=== PATIENT | female | born 1970 | race African-American/Black ===

== ENCOUNTER → 2021-06-30 07:34 | Outpatient (CLI) | payer BC, SELFPAY ==
--- NOTE | ~2021-06-30 | US_ITS ---
EXAMINATION: US pelvic complete DATE: 06/30/2021 07:53 INDICATION: Excessive and frequent menstruation with regular cycles. Comparison:No prior studies for comparison. TECHNIQUE: Multiple transabdominal sonographic images of the pelvis performed. FINDINGS: The uterus measures 8.5 x 5.4 x 6.6 cm. There are uterine fibroids, largest measuring 3.1 c m. The endometrial complex measures 1.3 cm. The right ovary measures 3.4 x 2 x 2.5 cm and the left ovary is surgically absent. There is 2.5 cm ri ght ovarian cyst. There is no free fluid in the pelvis. There are no abnormal masses seen on either side. IMPRESSION: 1. Uterine fibroids, largest measuring up to 3.1 cm. 2: Endometrial thickening measuring 1.3 cm. 3: Right ovarian cyst measuring 2.5 cm maximum dimension. Reviewed, dictated and finalized at location A.
== END ==
PROVIDERS: Visit Provider Nurse Practitioner
DX: N92.0 Excessive and frequent menstruation with regular cycle (principal); D25.9 Leiomyoma of uterus, unspecified; R93.89 Abnormal findings on diagnostic imaging of other specified body structures; N83.201 Unspecified ovarian cyst, right side
CPT/HCPCS: 76856

== ENCOUNTER 2021-10-26 21:28 | Inpatient (IN) | payer OTHER, MEDICAID, SELFPAY ==
[2021-10-26] VITALS (22 sets, daily range): BP systolic 105–138; BP diastolic 60–78; PULSE 67–83; RESP 18–35; TEMP 37.2–37.7; O2SAT 88–97
--- NOTE | ~2021-10-26 | XR_ITS ---
EXAMINATION: XR chest 1V portable EXAM DATE: 10/26/2021 23:20 INDICATION: cough, sob,COVID + . TECHNIQUE: Portable AP frontal chest x-ray was obtained. There is no prior study for comparison. FINDINGS: Moderate amount of bilateral ill-defined airspace disease, distribution and appearance is c onsistent with COVID pneumonia. There is cardiomegaly. There is no pneumothorax suspected. There are no pleural effusions. IMPRESSION: Moderate amount of COVID pneumonia. Reviewed, dictated and finalized at location G. MAKER
--- NOTE | ~2021-10-26 | CT_ITS ---
EXAMINATION: CTA chest PE protocol EXAM DATE: 10/26/2021 23:58 INDICATION: Shortness of breath, elevated D-dimer . TECHNIQUE: Spiral CTA of the chest (pulmonary arteries) was performed with 100 cc Omnipaque 350 intr avenous contrast injection. Images were acquired during the pulmonary arterial phase. Coronal maxi mum intensity projection 3D-reconstructions were created by the technologist on dedicated workstation . Axial, coronal and sagittal reformatted images were reviewed. The dose-length product (DLP) for t his examination was 711.10 mGy-cm. The exposure was tailored according to patient size (auto mA exp osure control), and iterative reconstruction (ASIR) was used as additional dose reduction technique. There is no prior study for comparison. FINDINGS: Pulmonary arteries are well opacified and without intraluminal filling defects. No thora cic aortic dissection. There is moderate amount of bilateral airspace disease, appearance is consist ent with COVID pneumonia. There is 5 mm right middle lobe round nodule probably granuloma. There are no pleural or pericardial effusions. Tracheobronchial tree is patent. There is no mediastinal, hi lar or axillary lymphadenopathy. There is no pneumothorax. Mild cardiomegaly. No evidence of cor onary arterial calcification. Upper abdomen is unremarkable. There is small sliding gastroesophagea l hiatal hernia. There is thoracic spondylosis without osteoblastic or osteolytic lesions identified . IMPRESSION: 1. Moderate amount of COVID pneumonia. 2. Mild cardiomegaly. 3. No pulmonary emboli. Reviewed, dictated and finalized at location G. [employer]
--- NOTE | 2021-10-26 21:59 | ECG_ITS ---
Measurements Intervals [place] Rate: 84 P: MD: 0 QRS: -30 QRSD: 106 T: -2 QT: 410 QTc: 485 Interpretive Statements ACCELERATED JUNCTIONAL RHYTHM DELAYED PRECORDIAL R/S TRANSITION BORDERLINE T WAVE ABNORMALITY- LATERAL LEADS BASELINE ARTIFACT- II, III, AVR, AVF, V1-V6 ABNORMAL ECG Electronically Signed On 10-27-2021 6:31:10 [employer] by Delio Diaz D.O.
--- NOTE | 2021-10-26 22:15 | ED.SOB ---
HPI - SOB/Dyspnea General Chief Complaint: Shortness of Breath/Dyspnea Stated Complaint: Covid +, low O2 sats Time Seen by Provider: 10/26/21 21:59 Source: patient Mode of arrival: ambulatory Limitations: no limitations History of Present Illness HPI Narrative: Patient is a 52-year-old female complaining of shortness of breath and low oxygen saturation I checked it and it was 88 accompanied by nausea, vomiting, fever, and body aches. Patient states that she tested positive for Covid 2 days ago. Patient denies any chest pain, abdominal pain, diarrhea or rash. Related Data Home Medications Medication Instructions Recorded Confirmed coenzyme Q10 10 mg capsule 10 mg PO ONCE 09/15/19 09/06/21 garlic 300 mg capsule 300 mg PO DAILY 09/15/19 09/06/21 multivitamin 1 cap PO DAILY 09/15/19 09/06/21 naproxen sodium 220 mg capsule 220 mg PO ONCE PRN cap 09/15/19 09/06/21 omega-3 fatty acids 1,000 mg 1,000 mg PO DAILY 09/15/19 09/06/21 capsule Allergies Allergy/AdvReac Type Severity Reaction Status Date / Time tetanus toxoid, adsorbed Allergy Unknown Swelling Verified 02/08/20 14:46 Review of Systems Review of Systems: All systems reviewed & are unremarkable except as noted in HPI and below Constitutional: Constitutional: Denies excessive sweating, Denies fatigue, Denies headache(s), Denies lethargy, Denies weakness and Denies weight loss Eyes: Eyes: Denies blurry vision, Denies change in vision and Denies loss of vision ENT: Denies dizziness, Denies ear discharge, Denies headache(s), Denies lip swelling, Denies epistaxis, Denies nasal congestion, Denies neck pain, Denies throat swelling and Denies tongue swelling Cardiovascular: Cardiovascular: Denies chest pain, Denies chest pain at rest, Denies chest pain with activity, Denies diaphoresis, Denies rapid heart rate, Denies edema, Denies irregular heart rhythm, Denies lightheadedness and Denies palpitations Respiratory: Respiratory: Denies chest congestion and Denies hemoptysis Gastrointestinal: Gastrointestinal: Denies abdominal pain, Denies melena, Denies hematochezia, Denies diarrhea, Denies nausea, Denies vomiting and Denies hematemesis Musculoskeletal: Musculoskeletal: Denies abnormal gait, Denies deformity, Denies joint swelling, Denies limited range of motion, Denies neck pain and Denies numbness Neurologic: Denies Abnormal speech present, Denies abnormal gait, Denies confusion, Denies dizziness, Denies headache(s), Denies focal weakness, Denies loss of vision, Denies numbness, Denies Other visual disturbances, Denies Sensory deficit (Neuro) and Denies weakness Psychiatric: Psychiatric: Denies confusion, Denies depression, Denies auditory hallucinations, Denies homicidal ideation and Denies suicidal ideation Endocrine: Endocrine: Denies cold intolerance, Denies excessive sweating, Denies fatigue, Denies heat intolerance and Denies palpitations Hematologic/Lymphatic: Hematologic/Lymphatic: Denies easy bleeding and Denies easy bruising Allergic/Immunologic: Allergic/Immunologic: Denies lip swelling, Denies throat swelling and Denies tongue swelling PMFSH Past Medical History Medical History Anemia Anemia Cholecystectomy planned Cholecystectomy planned Cyst near tailbone Cyst of jaw Heart murmur Heart murmur Hypertension Hypertension Seizure disorder Seizure disorder Surgical History Surgical History H/O removal of cyst Pilondial cyst removed 1984 Family History Family History Father Hypertension Type 2 diabetes mellitus Hyperlipidemia Mother Hypertension Sibling Type 2 diabetes mellitus Hypertension Hyperlipidemia Father Hypertension Diabetes mellitus Hyperlipidemia Mother Hypertension Sibling Hypertension Diabetes mellitus Hyperlipidemia Father Hypertension Mother
[2021-10-26 22:25] LABS: Basophils Percent Auto 0.2 % (0.2-1.2); Hematocrit 35.9 % (37.0-47.0); Hemoglobin 12.2 g/dL (12.0-15.0); Immature Granulocyte Absolute 0.02 K/mm3 (0.00-0.031); Immature Granulocyte Percent A 0.4 % (0-0.5); Lymphocytes Absolute Auto 1.13 K/mm3 (0.9-3.2); Lymphocytes Percent Auto 22.9 % (18.3-44.2); Mean Corpuscular Volume 88.2 fl (80-100); Mean Platelet Volume 10.5 fl (7.4-10.4); Monocytes Absolute Auto 0.2 K/mm3 (0.1-0.6); Monocytes Percent Auto 3.2 % (2.6-8.5); Neutrophils Absolute Auto 3.6 K/mm3 (1.3-6.7); Neutrophils Percent Auto 73.3 % (45.5-73.1); Platelet Count Result 233 k/mm3 (150-375); Red Blood Count 4.07 M/mm3 (4.2-5.4); White Blood Count 4.9 K/mm3 (4.5-10.0)
[2021-10-26 22:36] LABS: Partial Thromboplastin Time 29.6 SECONDS (22.3-36.8); Prothrombin Time 12.8 Seconds (11.1-14.7)
[2021-10-26 22:39] LABS: D Dimer 0.61 ug/mL (<0.48)
[2021-10-26 22:59] LABS: Alanine Aminotransferase 67 U/L (4-35); Albumin Level 4.1 g/dL (3.5-5.1); Alkaline Phosphatase 87 U/L (38-126); Anion Gap 8 mmol/L (8-16); Aspartate Amino Transferase 86 U/L (14-36); Bilirubin,Total 0.5 mg/dL (0.2-1.3); Blood Urea Nitrogen 6 mg/dL (7-17); Calcium 8.7 mg/dL (8.4-10.2); Carbon Dioxide 24 mmol/L (22-30); Chloride 103 mmol/L (98-107); Estimated CRCL calculation 124 ml/min; Estimated Glomerular Filt Rate > 60; Glucose 182 mg/dL (65-110); Potassium 3.7 mmol/L (3.4-5.0); Sodium 135 mmol/L (137-145)
[2021-10-26 23:11] LABS: NT Pro B Type Natriuretic Pept 26 pg/mL (5-100); Troponin I < 0.012 ng/mL (0.000-0.034)
[2021-10-26] MEDS: PROMETHAZINE HCL 25 MG/ML AMPUL 12.5 MG IV PUSH (23:19)
[2021-10-26] MEDS: SODIUM CHLORIDE 0.9% IV 100 ML 500 ML (23:19)
[2021-10-26] MEDS: LACTATED RINGERS 1,000 ML 999 ML (23:19)
[2021-10-26 23:29] LABS: Alveolar/Arterial O2 Gradient 92.9 mmHg; Base Excess ABG 2.4 mEq/l (+/-2.0); Fractional Inspired Oxygen 21 %; HCO3 ABG 25.2 mEq/l (22.0-26.0); Oxygen Content ABG 4.8 %vol (16.0-22.0); PCO2 ABG 33.1 mmHg (35.0-45.0); PO2 FiO2 Ratio Arterial Blood 0.82 %; Total Hemoglobin 12.2 g/dL (12.0-18.0); pH ABG 7.499 (7.350-7.450)
[2021-10-27] VITALS (20 sets, daily range): BP systolic 105–138; BP diastolic 54–72; PULSE 68–84; RESP 14–31; TEMP 36.5–37; O2SAT 92–100; BMI 38.2
--- NOTE | 2021-10-27 00:42 | PM.IMHP ---
H&P: HPI History of Present Illness Date/Time: 10/27/21 00:42 Chief Complaint: Shortness of breath Narrative: This is a 51-year-old female with past medical history significant for hypertension, patient presented today to the emergency room due to worsening shortness of breath pulse ox at home showed saturation in the 80s, patient tested positive for COVID with a home kit test 2 days ago, has been having fevers, chills, poor appetite, no nausea or vomiting, or abdominal pain, or diarrhea, has had fevers ,rigors chills ,dry cough. Preliminary workup was significant for chest x-ray with bilateral diffuse infiltrates. Patient is vaccinated with [employer] COVID-19 vaccine. Review of Systems Review of Systems: Low pulse ox at home, shortness of breath, generalized malaise. Constitutional: Constitutional: Reports chills, Reports fever(s), Reports lethargy, Reports malaise, Reports night sweats and Reports poor appetite Eyes: Eyes: Denies change in vision ENT: Denies nasal congestion, Denies nasal discharge, Denies nasal obstruction and Denies odynophagia Cardiovascular: Cardiovascular: Denies claudication, Denies lightheadedness, Denies radiating jaw, neck or arm pain, Denies palpitations, Denies dyspnea on exertion and Denies orthopnea Respiratory: Respiratory: Denies change in phlegm color, Denies chest congestion, Denies excessive phlegm production and Reports dyspnea Gastrointestinal: Gastrointestinal: Denies abdominal pain, Denies diarrhea, Denies nausea and Denies vomiting Genitourinary: Genitourinary: Denies dysuria Musculoskeletal: Musculoskeletal: Reports myalgias, Denies arthralgias and Denies joint swelling Integumentary/Breasts: Skin/Breast: Denies rash Neurologic: Denies focal weakness and Denies Sensory deficit (Neuro) Psychiatric: Psychiatric: Reports no additional psychiatric complaints and Reports as per HPI Endocrine: Endocrine: Denies cold intolerance, Denies fatigue, Denies heat intolerance, Denies polydipsia, Denies polyuria and Denies palpitations Hematologic/Lymphatic: Hematologic/Lymphatic: Reports no additional hematologic/lymphatic complaints and Reports as per HPI Allergic/Immunologic: Allergic/Immunologic: Reports no additional allergic/immunologic complaints and Reports as per HPI [facility] Past Medical History Medical History Anemia Anemia Cholecystectomy planned Cholecystectomy planned Cyst near tailbone Cyst of jaw Heart murmur Heart murmur Hypertension Hypertension Seizure disorder Seizure disorder Surgical History Surgical History H/O removal of cyst Pilondial cyst removed 1984 Family History Family History Father Hypertension Type 2 diabetes mellitus Hyperlipidemia Mother Hypertension Sibling Type 2 diabetes mellitus Hypertension Hyperlipidemia Father Hypertension Diabetes mellitus Hyperlipidemia Mother Hypertension Sibling Hypertension Diabetes mellitus Hyperlipidemia Father Hypertension Mother Hypertension Sibling Hypertension Social History Social History Smoking status: Never smoker Alcohol intake: never Substance use: never Spiritual care concerns: No Meds Home Medications and Allergies Home Medications Medication Instructions Recorded Confirmed Type coenzyme Q10 10 mg capsule 10 mg PO ONCE 09/15/19 09/06/21 History garlic 300 mg capsule 300 mg PO DAILY 09/15/19 09/06/21 History multivitamin 1 cap PO DAILY 09/15/19 09/06/21 History omega-3 fatty acids 1,000 mg 1,000 mg PO DAILY 09/15/19 09/06/21 History capsule amlodipine 5 mg tablet 5 mg PO DAILY #90 tablet 09/06/21 09/06/21 Rx losartan 100 mg tablet 100 mg PO DAILY #90 tablet 09/06/21 09/06/21 Rx Allergies Allergy/AdvReac Type Severity Re
[2021-10-27] MEDS: ALBUTEROL SULFATE NEB 2.5 MG/0.5 ML INH 5 MG INHALATION (01:19)
[2021-10-27] MEDS: IPRATROPIUM BR 0.02% INH SOLN 0.5 MG/2.5 ML VIAL INHALATION (01:19)
[2021-10-27] MEDS: ONDANSETRON INJ 4 MG/2 ML VIAL IV PUSH (01:28)
[2021-10-27] MEDS: REMDESIVIR 200 MG/NS 250 ML 200 MG/250 ML BAG 250 MG IVPB (01:29)
--- NOTE | 2021-10-27 03:06 | ADMGEN ---
This patient, Viviana Frey, was admitted to [facility] Surg Room 310-01. Patient/family oriented to hospital policies and general routines including ID bracelet, bed and alarms, visiting hours, pain management, procedures, bathroom and other care routines, personal items, smoking policy, room service/diet, and visiting hours. Information on how to activate the Rapid Response Team has been discussed. Patient/Family are encouraged to report perceived risks to care and to ask questions if they do not understand what they are told or what they should do.
[2021-10-27] MEDS: cefTRIAXone 2 GM in SODIUM CHLORIDE 0.9% IV 100 ML 200 ML IVPB (04:02)
[2021-10-27 04:17] LABS: Prothrombin Time 13.2 Seconds (11.1-14.7)
[2021-10-27 04:20] LABS: Alanine Aminotransferase 76 U/L (4-35); Estimated CRCL calculation 122 ml/min; Estimated Glomerular Filt Rate > 60
[2021-10-27] MEDS: OMEGA 3 POLYUNSAT FATTY ACIDS 1 GM CAP PO (09:52)
[2021-10-27] MEDS: LOSARTAN POTASSIUM 100 MG TABLET PO (09:53)
[2021-10-27] MEDS: ENOXAPARIN 40 MG/0.4 ML SYRINGE SUB-Q (09:53)
[2021-10-27] MEDS: guaiFENesin 12 HR 600 MG TABCR PO ×2 (09:53→20:14)
[2021-10-27] MEDS: amLODIPine BESYLATE 5 MG TABLET PO (09:53)
[2021-10-27] MEDS: MULTIVITAMINS THERAPEUTIC TAB (*BKC) 1 TABLET PO (09:53)
[2021-10-27 15:31] LABS: SARS-CoV-2 RNA PCR Positive
--- NOTE | 2021-10-27 16:43 | PM.IMPN ---
Progress Note: A&P Assessment and Plan (1) Acute respiratory failure with hypoxia: Code(s): J96.01 - Acute respiratory failure with hypoxia Status: Acute Assessment and Plan: Secondary to COVID-19 pneumonia. Noted to be hypoxic at 80% on presentation. Continue supplemental O2 as needed with goal saturations 92% or above. Currently requiring 4 L per nasal cannula. Wean to goal CTA negative for PE (2) Pneumonia due to COVID-19 virus: Code(s): U07.1 - COVID-19; J12.82 - Pneumonia due to coronavirus disease 2019 Status: Acute Assessment and Plan: Tested positive on at home COVID test with symptom onset 5 days ago. Positive PCR test on 10/27/2021. CXR showed moderate amount of COVID pneumonia. Continue isolation precautions Continue dexamethasone and remdesivir #2. Monitor LFTs Supportive care to include bronchodilators, expectorants, antipyretics, incentive spirometry, cornet Discontinue ceftriaxone and azithromycin as no signs/symptoms to suggest secondary bacterial infection Trend inflammatory markers Patient completed [employer] vaccine. Has not received booster yet. (3) Hypertension: Qualifiers: Hypertension type: essential hypertension Qualified Code(s): I10 - Essential (primary) hypertension Code(s): I10 - Essential (primary) hypertension Status: Acute Assessment and Plan: Blood pressure has been well controlled. Last BP 121/68 Continue losartan and amlodipine Monitor blood pressure trends Subjective Date/time seen: 10/27/21 16:43 Interval history: Date of service: 10/27/2021 Viviana Frey is a 51-year-old female with a history anemia, hypertension, seizure disorder, and uterine fibroids is seen in follow-up for COVID-19 pneumonia. She feels better today than she has in the past week. Starting to have some improvement in her breathing. She does complain of dyspnea on exertion as well as conversational dyspnea. She has been able to get up to the commode but feels fatigued with activity. She has been feeling nauseous and was vomiting yesterday. Today, no longer having nausea or vomiting and she is tolerating a liquid diet. She would like to try to advance her diet. No diarrhea. She denies headaches, body aches, dizziness, lightheadedness. Review of Systems Review of Systems: All systems reviewed & are unremarkable except as noted in HPI and below Exam Narrative: Ms. Frey is a well-nourished, well-appearing 51-year-old female who is sitting up in bed. She appears comfortable and is in NARD. Neuro: awake, alert and oriented x4, speech clear, no focal neuro deficits noted HEENMT: normocephalic, atraumatic, EOMI, sclerae anicteric Neck: supple, no lymphadenopathy Respiratory: clear to auscultation bilaterally without crackles, rhonchi, or wheezes, nonlabored breathing Cardio: regular rate, regular rhythm with S1-S2 Abdomen: nondistended, normoactive bowel sounds, soft, nontender to palpation Extremities: no edema, erythema, or tenderness to palpation, DP pulses 2+ bilaterally Skin: no rashes or lesions, warm and dry Psych: appropriate mood and affect, judgment and insight intact Objective Data Vital Signs Vital Signs: Vital Signs - 24 hr 10/26/21 21:30 10/26/21 21:32 10/26/21 21:53 Temperature 99.8 F H Pulse Rate 83 79 Respiratory Rate 18 26 H Blood Pressure 131/78 Pulse Oximetry 96 94 10/26/21 21:54 10/26/21 22:00 10/26/21 22:01 Temperature Pulse Rate 80 77 76 Respiratory Rate 23 H 25 H 24 H Blood Pressure 138/77 137/74 Pulse Oximetry 94 94 93 10/26/21 22:15 10/26/21 22:16 10/26/21 22:30 Temperature Pulse Rate 83 81 78 Respiratory Rate 21 H 21 H 20 Blood Pressure 121/76 Pulse Oximetry 94 94 94 10/26/21 22:31 10/26/21 22:32 10/26/21 22:45 Temperature Pulse Rate 83 83 78 Respiratory Rate 23 H 25 H 19 Blood Pressure 135/73 Pulse Oximetry 93 93 93
[2021-10-27] MEDS: DEXAMETHASONE 2 MG TABLET 6 MG PO (20:15)
[2021-10-27] MEDS: REMDESIVIR 100 MG/NS 250 ML 100 MG/250 ML BAG 250 MG IVPB (21:10)
[2021-10-28] VITALS: BP 114/58; PULSE 76; RESP 18; TEMP 36.2; O2SAT 90
[2021-10-28 04:00] VITALS: BP 134/69; PULSE 63; RESP 18; TEMP 36.6; O2SAT 90
[2021-10-28 06:48] LABS: Hematocrit 33.6 % (37.0-47.0); Mean Corpuscular HGB Conc 32.7 g/dl (32-36); Mean Corpuscular Hemoglobin 29.5 pg (26-34); Mean Corpuscular Volume 90.1 fl (80-100); Mean Platelet Volume 10.6 fl (7.4-10.4); Platelet Count Result 288 k/mm3 (150-375); Red Blood Count 3.73 M/mm3 (4.2-5.4); Red Cell Distribution Width 12.4 % (11.5-14.5); White Blood Count 4.8 K/mm3 (4.5-10.0)
[2021-10-28 07:04] LABS: Alanine Aminotransferase 58 U/L (4-35); Albumin Level 3.8 g/dL (3.5-5.1); Alkaline Phosphatase 77 U/L (38-126); Anion Gap 9 mmol/L (8-16); Aspartate Amino Transferase 44 U/L (14-36); Bilirubin,Total 0.3 mg/dL (0.2-1.3); Blood Urea Nitrogen 9 mg/dL (7-17); CRP 3.3 mg/dL (<1.0); Calcium 8.9 mg/dL (8.4-10.2); Carbon Dioxide 26 mmol/L (22-30); Chloride 105 mmol/L (98-107); Estimated CRCL calculation 122 ml/min; Estimated Glomerular Filt Rate > 60; Glucose 161 mg/dL (65-110); Lactate Dehydrogenase 887 U/L (313-618); Potassium 4.4 mmol/L (3.4-5.0); Sodium 140 mmol/L (137-145)
[2021-10-28 07:14] LABS: INR 1.1; Prothrombin Time 13.7 Seconds (11.1-14.7)
[2021-10-28 08:00] VITALS: BP 105/59; PULSE 66; RESP 16; RESP 20; TEMP 36.9; O2SAT 92; O2SAT 94
[2021-10-28] MEDS: amLODIPine BESYLATE 5 MG TABLET PO (10:30)
[2021-10-28] MEDS: guaiFENesin 12 HR 600 MG TABCR PO ×2 (10:30→21:05)
[2021-10-28] MEDS: MULTIVITAMINS THERAPEUTIC TAB (*BKC) 1 TABLET PO (10:30)
[2021-10-28] MEDS: ENOXAPARIN 40 MG/0.4 ML SYRINGE SUB-Q (10:31)
[2021-10-28] MEDS: SALINE 0.65% NAS SOLN 44 ML BTL 1 SPRAY NASAL (10:31)
[2021-10-28] MEDS: LOSARTAN POTASSIUM 100 MG TABLET PO (10:31)
[2021-10-28] MEDS: OMEGA 3 POLYUNSAT FATTY ACIDS 1 GM CAP PO (10:31)
--- NOTE | 2021-10-28 11:48 | PM.IMPN ---
Progress Note: A&P Assessment and Plan (1) Acute respiratory failure with hypoxia: Code(s): J96.01 - Acute respiratory failure with hypoxia Status: Acute Assessment and Plan: Secondary to COVID-19 pneumonia. Noted to be hypoxic at 80% on presentation. Continue supplemental O2 as needed with goal saturations 92% or above. Currently requiring 3 L per nasal cannula. Wean to goal CTA negative for PE (2) Pneumonia due to COVID-19 virus: Code(s): U07.1 - COVID-19; J12.82 - Pneumonia due to coronavirus disease 2018 Status: Acute Assessment and Plan: Tested positive on at home COVID test with symptom onset 5 days ago. Positive PCR test on 10/27/2021. CXR showed moderate amount of COVID pneumonia. Continue isolation precautions Continue dexamethasone and remdesivir #3. Monitor LFTs. ALT is 58. Supportive care to include bronchodilators, expectorants, antipyretics, incentive spirometry, cornet Trend inflammatory markers Patient completed [employer] vaccine. Has not received booster yet. (3) Hypertension: Qualifiers: Hypertension type: essential hypertension Qualified Code(s): I10 - Essential (primary) hypertension Code(s): I10 - Essential (primary) hypertension Status: Acute Assessment and Plan: Blood pressure has been well controlled. Last BP 109/64 Continue losartan and amlodipine Monitor blood pressure trends Subjective Date/time seen: 10/28/21 11:48 Interval history: Date of service: 10/27/2021 Viviana Frey is a 51-year-old female with a history anemia, hypertension, seizure disorder, and uterine fibroids who is seen in follow-up for COVID-19 pneumonia. Feeling okay today. Reports taking shallow breaths, but seems that occasionally she is able to get deeper breaths without discomfort, which is an improvement for her. She has a productive cough with yellowish sputum. She has been using her incentive spirometer and would like to try to use the cornet valve too to loosen her cough. She has been able to get up and walk around, though this does trigger coughing. Last night she felt sweaty but denies fevers or chills. She has been tolerating liquids and wants to advance to regular diet. No further nausea or vomiting. Her last bowel movement was 3 days ago. Review of Systems Review of Systems: All systems reviewed & are unremarkable except as noted in HPI and below Exam Narrative: Ms. Frey is a well-nourished, well-appearing 51-year-old female who is sitting in a chair by the bedside. She appears comfortable and is in NARD. Neuro: awake, alert and oriented x4, speech clear, no focal neuro deficits noted HEENMT: normocephalic, atraumatic, EOMI, sclerae anicteric Neck: supple, no lymphadenopathy Respiratory: clear to auscultation bilaterally without crackles, rhonchi, or wheezes, nonlabored breathing Cardio: regular rate, regular rhythm with S1-S2 Abdomen: nondistended, normoactive bowel sounds, soft, nontender to palpation Extremities: no edema, erythema, or tenderness to palpation, DP pulses 2+ bilaterally Skin: no rashes or lesions, warm and dry Psych: appropriate mood and affect, judgment and insight intact Objective Data Vital Signs Vital Signs: Vital Signs - 24 hr 10/27/21 12:00 10/27/21 16:00 10/27/21 20:00 Temperature 98.1 F 97.9 F 98.6 F Pulse Rate 73 71 68 Respiratory Rate 14 14 18 Blood Pressure 136/72 121/68 112/70 Pulse Oximetry 96 96 95 10/28/21 00:00 10/28/21 04:00 10/28/21 08:00 Temperature 97.1 F L 97.9 F 98.5 F Pulse Rate 76 63 66 Respiratory Rate 18 18 20 Blood Pressure 114/58 L 134/69 105/59 L Pulse Oximetry 90 90 92 Intake/Output Intake/Output: Intake & Output 10/25/21 10/26/21 10/27/21 10/28/21 23:59 23:59 23:59 23:59 Intake Total 3270 760 Balance 3270 760 Meds/Results Medications: Active Medications Generic Name Dose Route Start Last Admin Trade N
[2021-10-28 11:55] VITALS: BP 109/64; PULSE 72; RESP 14; TEMP 36.7; O2SAT 97
[2021-10-28 16:00] VITALS: BP 107/62; PULSE 69; RESP 14; TEMP 36.8; O2SAT 95
[2021-10-28 20:00] VITALS: BP 98/50; PULSE 69; RESP 18; TEMP 37.2; O2SAT 93; O2SAT 94
[2021-10-28] MEDS: DEXAMETHASONE 2 MG TABLET 6 MG PO (21:05)
[2021-10-28] MEDS: REMDESIVIR 100 MG/NS 250 ML 100 MG/250 ML BAG 250 MG IVPB (21:05)
[2021-10-29] VITALS: BP 104/52; PULSE 61; RESP 18; TEMP 36.9; O2SAT 94
[2021-10-29 04:00] VITALS: BP 109/60; PULSE 58; RESP 16; TEMP 36.4; O2SAT 97
[2021-10-29 08:00] VITALS: BP 116/72; PULSE 60; RESP 14; TEMP 36.7; O2SAT 93
[2021-10-29 08:14] LABS: Hematocrit 35.4 % (37.0-47.0); Hemoglobin 11.6 g/dL (12.0-15.0); Mean Corpuscular HGB Conc 32.8 g/dl (32-36); Mean Corpuscular Hemoglobin 29.4 pg (26-34); Mean Corpuscular Volume 89.6 fl (80-100); Mean Platelet Volume 10.5 fl (7.4-10.4); Platelet Count Result 345 k/mm3 (150-375); Red Blood Count 3.95 M/mm3 (4.2-5.4); Red Cell Distribution Width 12.2 % (11.5-14.5); White Blood Count 7.2 K/mm3 (4.5-10.0)
[2021-10-29 08:27] LABS: Prothrombin Time 13.5 Seconds (11.1-14.7)
[2021-10-29 08:28] LABS: Alanine Aminotransferase 64 U/L (4-35); Albumin Level 4.1 g/dL (3.5-5.1); Alkaline Phosphatase 79 U/L (38-126); Anion Gap 8 mmol/L (8-16); Aspartate Amino Transferase 56 U/L (14-36); Bilirubin,Total 0.4 mg/dL (0.2-1.3); Blood Urea Nitrogen 13 mg/dL (7-17); CRP 1.8 mg/dL (<1.0); Calcium 9.1 mg/dL (8.4-10.2); Carbon Dioxide 27 mmol/L (22-30); Chloride 104 mmol/L (98-107); Estimated CRCL calculation 122 ml/min; Estimated Glomerular Filt Rate > 60; Glucose 169 mg/dL (65-110); Potassium 4.3 mmol/L (3.4-5.0); Sodium 139 mmol/L (137-145)
[2021-10-29] MEDS: OMEGA 3 POLYUNSAT FATTY ACIDS 1 GM CAP PO (10:22)
[2021-10-29] MEDS: amLODIPine BESYLATE 5 MG TABLET PO (10:23)
[2021-10-29] MEDS: MULTIVITAMINS THERAPEUTIC TAB (*BKC) 1 TABLET PO (10:23)
[2021-10-29] MEDS: guaiFENesin 12 HR 600 MG TABCR PO ×2 (10:23→21:02)
[2021-10-29] MEDS: LOSARTAN POTASSIUM 100 MG TABLET PO (10:23)
[2021-10-29] MEDS: ENOXAPARIN 40 MG/0.4 ML SYRINGE SUB-Q (10:23)
[2021-10-29 10:29] LABS: Oxygen Saturation ABG 29.9 % (95.0-100.0); Oxyhemoglobin 28.2 % THb (90.0-100.0); PO2 ABG 17.2 mmHg (80.0-100.0)
[2021-10-29 11:55] VITALS: BP 121/68; PULSE 62; RESP 16; TEMP 36.5; O2SAT 96
--- NOTE | 2021-10-29 13:45 | PM.IMPN ---
Progress Note: A&P Assessment and Plan (1) Acute respiratory failure with hypoxia: Code(s): J96.01 - Acute respiratory failure with hypoxia Status: Acute Assessment and Plan: Secondary to COVID-19 pneumonia. Noted to be hypoxic at 80% on presentation. Continue supplemental O2 as needed with goal saturations 92% or above. Currently requiring 3 L per nasal cannula. Wean to goal CTA negative for PE (2) Pneumonia due to COVID-19 virus: Code(s): U07.1 - COVID-19; J12.82 - Pneumonia due to coronavirus disease 2019 Status: Acute Assessment and Plan: Tested positive on at home COVID test with symptom onset 5 days ago. Positive PCR test on 10/27/2021. CXR showed moderate amount of COVID pneumonia. Continue isolation precautions Continue dexamethasone and remdesivir #4. Monitor LFTs. ALT is 64. Supportive care to include bronchodilators, expectorants, antipyretics, incentive spirometry, cornet Monitor inflammatory markers, trending down Patient completed [employer] vaccine. Has not received booster yet. (3) Hypertension: Qualifiers: Hypertension type: essential hypertension Qualified Code(s): I10 - Essential (primary) hypertension Code(s): I10 - Essential (primary) hypertension Status: Acute Assessment and Plan: Blood pressure has been well controlled. Last BP 121/68 Continue losartan and amlodipine Monitor blood pressure trends Subjective Date/time seen: 10/29/21 13:45 Interval history: Date of service: 10/29/2021 Viviana Frey is a 51-year-old female with a history anemia, hypertension, seizure disorder, and uterine fibroids who is seen in follow-up for COVID-19 pneumonia. She feels little bit better today shortness of breath improving. Endorses cough productive of yellowish. Does have some pleuritic discomfort when she takes a deep. Appetite is okay. No dizziness, lightheadedness, fever, chills, nausea, vomiting. She had a small bowel movement this morning. No urinary symptoms. Denies palpitations. She has been able to get up and walk around. Review of Systems Review of Systems: All systems reviewed & are unremarkable except as noted in HPI and below Exam Narrative: Ms. Frey is a well-nourished, well-appearing 51-year-old female who is sitting in a chair by the bedside. She appears comfortable and is in NARD. Neuro: awake, alert and oriented x4, speech clear, no focal neuro deficits noted HEENMT: normocephalic, atraumatic, EOMI, sclerae anicteric Neck: supple, no lymphadenopathy Respiratory: clear to auscultation bilaterally without crackles, rhonchi, or wheezes, nonlabored breathing Cardio: regular rate, regular rhythm with S1-S2 Abdomen: nondistended, normoactive bowel sounds, soft, nontender to palpation Extremities: no edema, erythema, or tenderness to palpation, DP pulses 2+ bilaterally Skin: no rashes or lesions, warm and dry Psych: appropriate mood and affect, judgment and insight intact Objective Data Vital Signs Vital Signs: Vital Signs - 24 hr 10/28/21 16:00 10/28/21 20:00 10/29/21 00:00 Temperature 98.2 F 98.9 F 98.4 F Pulse Rate 69 69 61 Respiratory Rate 14 18 18 Blood Pressure 107/62 98/50 L 104/52 L Pulse Oximetry 95 93 94 10/29/21 04:00 10/29/21 08:00 10/29/21 11:55 Temperature 97.6 F 98.0 F 97.7 F Pulse Rate 58 L 60 62 Respiratory Rate 16 14 16 Blood Pressure 109/60 116/72 121/68 Pulse Oximetry 97 93 96 Intake/Output Intake/Output: Intake & Output 10/26/21 10/27/21 10/28/21 10/29/21 23:59 23:59 23:59 23:59 Intake Total 3520 3880 1040 Balance 3520 3880 1040 Meds/Results Medications: Active Medications Generic Name Dose Route Start Last Admin Trade Name Freq PRN Reason Stop Dose Admin Acetaminophen 650 mg 10/27/21 08:37 Acetaminophen 325 Mg Tablet PO Q4H PRN Headache Albuterol 2 puff 10/27/21 08:37 Albuterol Sulfate (*Sp) Ae
[2021-10-29 16:00] VITALS: BP 132/71; PULSE 58; RESP 16; TEMP 36.9; O2SAT 100
[2021-10-29 20:00] VITALS: BP 116/61; PULSE 66; RESP 14; TEMP 36.6; O2SAT 95; O2SAT 96
[2021-10-29] MEDS: DEXAMETHASONE 2 MG TABLET 6 MG PO (21:02)
[2021-10-29] MEDS: REMDESIVIR 100 MG/NS 250 ML 100 MG/250 ML BAG 250 MG IVPB (21:03)
[2021-10-30] VITALS (9 sets, daily range): BP systolic 106–127; BP diastolic 57–74; PULSE 52–75; RESP 16–56; TEMP 36–36.5; O2SAT 93–99
[2021-10-30 06:47] LABS: Hematocrit 36.4 % (37.0-47.0); Hemoglobin 11.8 g/dL (12.0-15.0); Mean Corpuscular HGB Conc 32.4 g/dl (32-36); Mean Corpuscular Volume 89.4 fl (80-100); Mean Platelet Volume 10.7 fl (7.4-10.4); Platelet Count Result 402 k/mm3 (150-375); Red Blood Count 4.07 M/mm3 (4.2-5.4); Red Cell Distribution Width 12.2 % (11.5-14.5); White Blood Count 7.9 K/mm3 (4.5-10.0)
[2021-10-30 07:02] LABS: Alanine Aminotransferase 102 U/L (4-35); Albumin Level 4.2 g/dL (3.5-5.1); Alkaline Phosphatase 87 U/L (38-126); Anion Gap 10 mmol/L (8-16); Aspartate Amino Transferase 72 U/L (14-36); Bilirubin,Total 0.4 mg/dL (0.2-1.3); Blood Urea Nitrogen 13 mg/dL (7-17); CRP 1.2 mg/dL (<1.0); Calcium 9.1 mg/dL (8.4-10.2); Carbon Dioxide 24 mmol/L (22-30); Chloride 104 mmol/L (98-107); Estimated CRCL calculation 122 ml/min; Estimated Glomerular Filt Rate > 60; Glucose 259 mg/dL (65-110); Lactate Dehydrogenase 854 U/L (313-618); Potassium 4.5 mmol/L (3.4-5.0); Sodium 138 mmol/L (137-145)
[2021-10-30 07:10] LABS: Prothrombin Time 13.2 Seconds (11.1-14.7)
[2021-10-30] MEDS: ENOXAPARIN 40 MG/0.4 ML SYRINGE SUB-Q (10:25)
[2021-10-30] MEDS: OMEGA 3 POLYUNSAT FATTY ACIDS 1 GM CAP PO (10:25)
[2021-10-30] MEDS: MULTIVITAMINS THERAPEUTIC TAB (*BKC) 1 TABLET PO (10:26)
[2021-10-30] MEDS: guaiFENesin 12 HR 600 MG TABCR PO (10:26)
[2021-10-30] MEDS: amLODIPine BESYLATE 5 MG TABLET PO (10:26)
[2021-10-30] MEDS: LOSARTAN POTASSIUM 100 MG TABLET PO (10:26)
--- NOTE | 2021-10-30 13:34 | HOMEO2EVAL ---
Evaluation was performed at [facility] Home Oxygen Evaluation RC: Home Oxygen (O2) Evaluation Start: 10/30/21 11:45 Freq: ONCE Status: Active Protocol: RPE Activity Type Activity Date Activity User E-Sign Co-Sign Detail Recorded Client Recorded Date Recorded By Document 10/30/21 13:25 [email or web address] [email or web address] 10/30/21 13:34 KRM Document 10/30/21 13:27 [email or web address] [email or web address] 10/30/21 13:34 KRM Document 10/30/21 13:29 [email or web address] [email or web address] 10/30/21 13:34 KRM 10/30/21 10/30/21 10/30/21 13:25 13:27 13:29 Home O2 Evaluation Test Phase Resting Exercise Exercise Oxygen Delivery Room Air Room Air Room Air Pulse Oximetry (90-100 %) 98 95 94 Pulse Rate (60-100 beats/min) 64 74 75 Activity Tolerance Excellent Excellent Ambulation Distance (feet) 100 Ambulation Distance (meters) 30.47 Treatment Charges O2 Evaluation - Inpatient
--- NOTE | 2021-10-30 14:46 | PM.DS ---
DS: Admitting Diagnosis Discharge Date 10/30/2021 Admitting Diagnosis COVID-19 pneumonia DS: Discharge Diagnosis Discharge Diagnosis (1) Acute respiratory failure with hypoxia: Code(s): J96.01 - Acute respiratory failure with hypoxia Status: Acute Assessment and Plan: Secondary to COVID-19 pneumonia. Noted to be hypoxic at 80% on presentation. CTA negative for PE. Required up to 3 L supplemental O2. She was able to be weaned to room air. Home oxygen evaluation performed prior to discharge with no continued oxygen requirements (2) Pneumonia due to COVID-19 virus: Code(s): U07.1 - COVID-19; J12.82 - Pneumonia due to coronavirus disease 2019 Status: Acute Assessment and Plan: Tested positive on at home COVID test with symptom onset 5 days ago. Positive PCR test on 10/27/2021. CXR showed moderate amount of COVID pneumonia. She completed 5 days of dexamethasone and remdesivir. LFTs monitored while on remdesivir. Supportive care provided including bronchodilators, expectorants, antipyretics, incentive spirometry, Cornet valve. Inflammatory markers improved. She had symptomatic improvement and no ongoing oxygen requirements. She did complete her [employer] vaccine. She has not received a booster yet and should follow-up with her PCP to discuss this. (3) Hypertension: Qualifiers: Hypertension type: essential hypertension Qualified Code(s): I10 - Essential (primary) hypertension Code(s): I10 - Essential (primary) hypertension Status: Acute Assessment and Plan: Blood pressure review daily and remained well controlled. Continue home losartan and amlodipine (4) Transaminitis: Code(s): R74.01 - Elevation of levels of liver transaminase levels Status: Acute Assessment and Plan: Likely secondary to acute viral illness. Plan for repeat hepatic panel in 2 weeks to ensure improvement following resolution of acute illness. Follow-up with PCP DS: Summary Hospital Course Hospital Course: Date of admission: 10/26/2021 Date of discharge: 10/30/2021 Viviana Frey is a 51-year-old female with a history anemia, hypertension, seizure disorder, and uterine fibroids who presented to the emergency department on 10/26/2021 with complaints of low oxygen saturations on home oximetry readings after testing positive for COVID on home test 2 days prior. On presentation to the emergency department, her vital signs were stable, she was afebrile, CBC and BMP unremarkable, CXR showed moderate amount of COVID pneumonia, CTA with no pulmonary embolism. She was admitted to the hospitalist service for further evaluation and management. Please see above for further details. She had symptomatic improvement with above therapy for COVID-19. She began feeling much better and requested discharge home. Home O2 eval showed no ongoing oxygen requirements. Given her overall improvement, she was determined to no longer require inpatient care was felt to be stable for discharge. We discussed the necessary COVID-19 precautions. It is also discussed worrisome signs and symptoms for which to return and she was educated on her medications. She was discharged in hemodynamically stable condition on 10/30/2021. Status at Discharge Functional status at discharge: independent ambulation Overall status at discharge: patient is progressing back to baseline Time Spent with Patient Time attestation: Total time spent providing and/or coordinating discharge services: 38 minutes Time spent: Greater than 30 minutes Exam Narrative: Ms. Frey is a well-nourished, well-appearing 51-year-old female who is sitting in a chair by the bedside. She appears comfortable and is in NARD. Neuro: awake, alert and oriented x4, speech clear, no focal neuro deficits noted HEENMT: normocephalic, atraumatic, EOMI, sclerae anicteric Neck: supple, no lymphadenopathy Respiratory: clear
[2021-10-30] MEDS: REMDESIVIR 100 MG/NS 250 ML 100 MG/250 ML BAG 250 MG IVPB (15:32)
== END 2021-10-30 17:30 | disposition home or self-care (01) | DRG 177 ==
LOC: ANHED 23:43 → ANH3MEDSUR 10-27 07:26
PROVIDERS: Admitting Provider Internal Medicine; Emergency Provider Emergency Medicine; PCP Internal Medicine; Visit Provider Physician Assistant
DX: U07.1 COVID-19 (principal); J12.82 Pneumonia due to coronavirus disease 2019; J96.01 Acute respiratory failure with hypoxia; I10 Essential (primary) hypertension; D64.9 Anemia, unspecified; G40.909 Epilepsy, unspecified, not intractable, without status epilepticus; R01.1 Cardiac murmur, unspecified; R74.01 Elevation of levels of liver transaminase levels; E66.9 Obesity, unspecified; Z68.38 Body mass index [BMI] 38.0-38.9, adult
CPT/HCPCS: 36415; 36600; 71045; 71275; 80053; 82565; 82728; 82805; 83615; 83880; 84460; 84484; 85025; 85027; 85380; 85610; 85730; 86140; 87040; 93005; 94618; 94640; 94667; 96361; 96374; 96375; 99285; A9270; C9803; J0456; J0696; J1100; J1650; J2405; J2550; J7120; J8540; Q9967; U0003; U0005

== ENCOUNTER 2022-04-15 00:34 | Day surgery (SDC) | payer OTHER, BC, SELFPAY ==
[2022-01-29 10:32] VITALS: BMI 38.0
--- NOTE | 2022-01-29 10:40 | PC.NURSE ---
Report to the Outpatient Waiting Room, entrance under the green pavilion located off [facility], at time 0600 on date 02/04/22. OR Time: 0730. - You and your visitor will be asked a series of questions to screen for COVID 19 for your protection. - A mask is required within the hospital. One visitor will be allowed to accompany the patient into the hospital. Patients visitor will be instructed to remain with patient at all times or leave the building. We will allow the visitor to come back to the postoperative area when patient is ready. Preoperative COVID Testing Requirements: No COVID Test needed if: (proof is required; if not received patient will have Rapid Test prior to entry) - Patient has received COVID Vaccine at least 14 days prior to procedure date or - Patient has positive COVID test result within last 90 days of surgery date. COVID Test needed if above criteria is not met Patients may have clear liquids (water, carbonated beverages, clear teas, apple juice) until 3 hours prior to surgery with a maximum of 20 ounces. - No food from midnight until time of surgery Take the following medications with a SIP of water the morning of surgery: AMLODIPINE Medications to discontinue per physician: VITAMINS/SUPPLEMENTS Date to take last dose: 01/31/22 Please no make-up, nail iranian, hairspray, perfume, deodorant, or body powder the day of surgery. No jewelry (including any body piercings) or valuables the day of surgery, leave them at home. Please take a shower or bath the night before, or the morning of, surgery with an antibacterial soap. Wear comfortable, loose fitting clothing. - Jewelry must be removed prior to entering the operating room. Rings and piercings that are not removed may be cut off. - The hospital will not accept responsibility for valuables. - Please leave all valuables, including medications, at home the day of surgery. If you are going home after surgery, a licensed parcel post truck driver must drive you home. - NO public transportation without another adult. - We recommend that an adult stay with you for 24 hours following discharge. - We also recommend that you do not drive, make important decision, drink alcoholic beverages, or take any drugs that were not prescribed by your health care provider for at least 24 hours after your discharge time. Follow any additional instructions given to you from your surgeon. Telephone instructions given to GERARD GRANADOS and asked if any additional questions and then verbalized understanding. Patient advised to call surgeon office or pre surgery nurse liaison [phone] if any additional questions.
[2022-04-08 16:47] VITALS: BMI 38.2
--- NOTE | 2022-04-08 16:55 | PC.NURSE ---
04/08/2022 1650- Patient called and reviewed pre-op instructions. Patient denying changes with health history or medications since previous telephone interview. Notified patient to arrive for surgery on 04/15/2022 at 1000 for anticipated surgery start time of 1200 and to remain NPO after midnight. Patient notified can have 20 ounces of clear liquids until 0800. Voiced understanding to stop vitamins/supplements 3 days prior to surgery and to take her morning dose of amlodipine day of surgery.
--- NOTE | 2022-04-15 07:41 | WPDHPUPDATE1 ---
History and Physical Update Update Date/Time: 04/15/22 07:41 History and Physical has been reviewed, including an updated exam of the patient. There are NO changes in the patient's condition. Risks, benefits, and alternatives have been discussed and questions answered. Patient agrees to proceed with procedure.
--- NOTE | 2022-04-15 07:41 | PM.HPGS ---
History of Present Illness History of Present Illness Consent: Risks, benefits, and alternatives have been discussed and questions answered. Patient agrees to proceed with procedure. Chief complaint: menorrhagia, fibroids Narrative: Viviana Frey is a 51 year old female with worsening cycles. Patient bleeding heavy for 2 days with large clots the size of golf balls. Pelvic ultrasound reveals fibroids. Recommended to proceed with D&C hysteroscopy. Risks of infection, bleeding, perforation, and fluid imbalance were reviewed. Possible pathology was also discussed. Patient voiced understanding and agrees to proceed. Review of Systems Review of Systems: not repeated day of surgery; patient states no changes in status [facility] Past Medical History Medical History (Updated 04/15/22 @ 07:46 by Theresa Crum MD) Anemia Cyst near tailbone Cyst of jaw Fibroid Heart murmur Hypertension (normal spontaneous vaginal delivery) X3 Seizure disorder last one many years ago Transaminitis Surgical History Surgical History (Updated 04/15/22 @ 07:46 by Theresa Crum MD) H/O removal of cyst Pilondial cyst removed 1984 History of laparoscopy Left torsion with removal of left fallopian tube Hx laparoscopic cholecystectomy 2004 Family History Family History Father Hypertension Type 2 diabetes mellitus Hyperlipidemia Mother Hypertension Sibling Type 2 diabetes mellitus Hypertension Hyperlipidemia Father Hypertension Diabetes mellitus Hyperlipidemia Mother Hypertension Sibling Hypertension Diabetes mellitus Hyperlipidemia Father Hypertension Mother Hypertension Sibling Hypertension Social History Social History Smoking status: Never smoker Alcohol intake: never Substance use: never Substance use type: does not use Living arrangements: with family Spiritual care concerns: No Meds Home Medications and Allergies Home Medications Medication Instructions Recorded Confirmed Type coenzyme Q10 10 mg capsule (Co 10 mg PO DAILY 09/15/19 04/08/22 History Q-10) garlic 300 mg capsule (Odorless 300 mg PO DAILY 09/15/19 04/08/22 History Garlic) multivitamin 1 cap PO DAILY 09/15/19 04/08/22 History omega-3 fatty acids 1,000 mg 1,000 mg PO DAILY 09/15/19 04/08/22 History capsule (Fish Oil Concentrate) amlodipine 5 mg tablet 5 mg PO DAILY #90 tabs 09/06/21 04/08/22 Rx losartan 100 mg tablet 100 mg PO DAILY #90 tabs 11/14/21 04/08/22 Rx Allergies Allergy/AdvReac Type Severity Reaction Status Date / Time tetanus toxoid, adsorbed Allergy Intermediate Swelling Verified 04/08/22 16:40 Exam Const: General: healthy appearing and alert Orientation/consciousness: patient oriented x3 GI: GI Palp: Yes Soft to palpation, No Tenderness to palpation present (GI) and No Palpable mass present : External Female Exam: normal external appearance Speculum Exam - Vagina: normal appearance of the vagina and normal vaginal discharge Speculum Exam - Cervix: normal appearance of the cervix Bimanual exam- vagina & uterus: uterine size normal and consistency normal Bimanual Exam- Adnexa, other: normal adnexae and No adnexal tenderness Neuro: General: patient oriented x3 Assessment and Plan Assessment and plan (1) Menorrhagia: Code(s): N92.0 - Excessive and frequent menstruation with regular cycle Status: Acute Assessment and Plan: Plan is to proceed with D&C hysteroscopy possible MyoSure
[2022-04-15 10:24] VITALS: BMI 38.2
[2022-04-15 10:25] VITALS: BP 165/95; PULSE 65; RESP 16; TEMP 37.1; O2SAT 100
[2022-04-15] MEDS: ACETAMINOPHEN 500 MG TABLET 1000 MG PO (10:30)
[2022-04-15] MEDS: LACTATED RINGERS 1,000 ML 30 ML IV CONT (10:51)
--- NOTE | 2022-04-15 11:25 | WPDANESEPPF ---
Anes - Initial Pre Proc Eval Procedure: Operation Date: 04/15/22 12:00 Proposed Procedures p Hysteroscopy Dilation and Curettage with Myosure - Theresa Crum MD Date/Time: 04/15/22 11:25 Surgeon: Theresa Crum MD Pre Op Diagnosis: menorrhagia, fibroids Patient Data Age: 51 Gender: F Height: 1.6 m Weight: 97.9 kg Last Vital Signs Temp 37.1 C 04/15/22 10:25 Pulse 65 04/15/22 10:25 Resp 16 04/15/22 10:25 BP 165/95 H 04/15/22 10:25 Pulse Ox 100 04/15/22 10:25 O2 Del Method Room Air 04/15/22 10:25 Allergies Allergy/AdvReac Type Severity Reaction Status Date / Time tetanus toxoid, adsorbed Allergy Intermediate Swelling Verified 04/15/22 10:16 Home Medications Medication Instructions Recorded Confirmed Type coenzyme Q10 10 mg capsule (Co 10 mg PO DAILY 09/15/19 04/08/22 History Q-10) garlic 300 mg capsule (Odorless 300 mg PO DAILY 09/15/19 04/08/22 History Garlic) multivitamin 1 cap PO DAILY 09/15/19 04/08/22 History omega-3 fatty acids 1,000 mg 1,000 mg PO DAILY 09/15/19 04/08/22 History capsule (Fish Oil Concentrate) amlodipine 5 mg tablet 5 mg PO DAILY #90 tabs 09/06/21 04/08/22 Rx losartan 100 mg tablet 100 mg PO DAILY #90 tabs 11/14/21 04/08/22 Rx Patient hx anesthesia problems: none Family hx anesthesia problems: none Results Review: All pre-operative results and documents have been reviewed as part of the pre-operative evaluation. [facility] Past Medical History Medical History Anemia Cyst near tailbone Cyst of jaw Fibroid Heart murmur Hypertension (normal spontaneous vaginal delivery) X3 Seizure disorder last one many years ago Transaminitis Surgical History Surgical History H/O removal of cyst Pilondial cyst removed 1984 History of laparoscopy Left torsion with removal of left fallopian tube Hx laparoscopic cholecystectomy 2004 Family History Family History Father Hypertension Type 2 diabetes mellitus Hyperlipidemia Mother Hypertension Sibling Type 2 diabetes mellitus Hypertension Hyperlipidemia Father Hypertension Diabetes mellitus Hyperlipidemia Mother Hypertension Sibling Hypertension Diabetes mellitus Hyperlipidemia Father Hypertension Mother Hypertension Sibling Hypertension Social History Social History Smoking status: Never smoker Alcohol intake: never Substance use: never Substance use type: does not use Living arrangements: with family Spiritual care concerns: No Anes - Eval Final PreProcedure Day of Procedure 04/15/22 11:25 Patient weight: obese Heart: regular rate and rhythm Lungs: clear to auscultation Airway: Mallampati scale class II Neurological: alert and oriented Last oral intake: >/= 8 hours ASA classification: III Emergent: no Anesthetic plan: proceed Anesthesia type and monitoring: general GIVS and standard monitoring Results Review: All pre-operative results and documents have been reviewed as part of the pre-operative evaluation. Informed Consent: The patient's anesthetic plan and its attendant risks and benefits were discussed with the patient/family/POA. Questions were solicited and answers provided to the satisfaction of the patient/family/POA.
--- NOTE | 2022-04-15 14:20 | W.PM.PROC2 ---
Procedure Note - Detailed Date of Procedure 04/15/22 Pre-op Diagnosis menorrhagia, fibroids Post-op Diagnosis Same Procedure Performed D&C hysteroscopy with myomectomy Surgeon Theresa Crum MD Anesthesia MAC and Local Findings Uterus sounds to 9cm. There is a large fibroid on the left lateral sidewall. Remainder of the endometrium appears grossly normal Description of Procedure The patient was taken to the operating room and placed under anesthesia in the dorsal lithotomy position. She was prepped and draped in usual sterile fashion. [place] speculum was placed in the vagina and the cervix grasped on the anterior lip with a tenaculum. The cervix is injected in each quadrant with 1% lidocaine. The uterus is sounded to 9cm. Cervix is serially dilated with Hegar to an 8. The diagnostic hysteroscope was placed with the above-stated findings. The MyoSure device is placed and under direct visualization a large portion of the fibroid is removed. Fluid became suddenly imbalanced at the end of the 2 L. the hysteroscope was removed and the myoma graspers placed. The remainder of the myoma is removed using the myoma graspers in pieces. Hysteroscope was periodically replaced to determine progress. Once no further material was obtained the hysteroscope was replaced and the endometrium appears flat at the fibroid site. The hysteroscope was removed and medium sharp curette used to sharply curette the endometrium until a good uterine cry was noted in all areas. The tenaculum was removed and the tenaculum site was noted to be bleeding. Silver nitrate is applied without success. Monsel's was applied with good hemostasis noted. Instruments are removed. Sponge, needle, and instrument counts are correct per the OR staff. The patient is awakened from anesthesia and taken to recovery in stable condition. Final fluid deficit is 1L. Estimated Blood Loss 25 Drains No Packing No Pathology Yes (Endometrial curettings and shavings and myoma pieces) Complications No immediate complications Condition Stable Disposition PACU
[2022-04-15 14:28] VITALS: BP 95/51; PULSE 66; RESP 16; O2SAT 100
[2022-04-15 14:55] VITALS: BP 95/51; PULSE 82; RESP 20
[2022-04-15 15:25] VITALS: BP 101/50; PULSE 78; RESP 20
[2022-04-15] MEDS: oxyCODONE HCL (*CRX) 5 MG TAB IR PO (15:44)
[2022-04-15 15:55] VITALS: BP 121/63; PULSE 64; RESP 20
[2022-04-15 16:10] VITALS: BP 121/72; PULSE 55; RESP 20
== END 2022-04-15 16:16 | disposition home or self-care (01) ==
PROVIDERS: PCP Internal Medicine; Visit Provider Obstetrics & Gynecology Gynecology
PROC: 0U5B8ZZ Destruction of Endometrium, Via Natural or Artificial Opening Endoscopic (ICD-10-PCS; CPT 58563; principal; 2022-04-15 12:00)
DX: N92.0 Excessive and frequent menstruation with regular cycle (principal); D25.9 Leiomyoma of uterus, unspecified; D64.9 Anemia, unspecified; I10 Essential (primary) hypertension; G40.909 Epilepsy, unspecified, not intractable, without status epilepticus; R01.1 Cardiac murmur, unspecified; Z90.49 Acquired absence of other specified parts of digestive tract
CPT/HCPCS: 58561; 88305; A9270; J1100; J1885; J2250; J2405; J2704; J3010; J7030; J7120

== ENCOUNTER 2023-06-19 00:50 | Day surgery (SDC) | payer BC, SELFPAY ==
[2023-06-05 11:57] VITALS: BMI 38.1
[2023-06-19 11:59] VITALS: BP 151/98; PULSE 54; RESP 18; TEMP 36.6; O2SAT 100
--- NOTE | 2023-06-19 12:28 | WPDANESEPPF ---
Anes - Initial Pre Proc Eval Procedure: Operation Date: 06/19/23 14:00 Proposed Procedures p Colonoscopy - Kolby Tinoco MD Date/Time: 06/19/23 12:28 Surgeon: Kolby Tinoco MD Pre Op Diagnosis: positive cologuard Patient Data Age: 53 Gender: F Height: 1.6 m Weight: 93.2 kg Last Vital Signs Temp 97.8 F 06/19/23 11:59 Pulse 54 L 06/19/23 11:59 Resp 18 06/19/23 11:59 BP 151/98 H 06/19/23 11:59 Pulse Ox 100 06/19/23 11:59 O2 Del Method Room Air 06/19/23 11:59 Allergies Allergy/AdvReac Type Severity Reaction Status Date / Time tetanus toxoid, adsorbed Allergy Intermediate Swelling Verified 06/19/23 11:50 Home Medications Medication Instructions Recorded Confirmed Type coenzyme Q10 10 mg capsule (Co 10 mg PO DAILY 09/15/19 06/05/23 History Q-10) garlic 300 mg capsule (Odorless 300 mg PO DAILY 09/15/19 06/05/23 History Garlic) multivitamin 1 cap PO DAILY 09/15/19 06/05/23 History omega-3 fatty acids 1,000 mg 1,000 mg PO DAILY 09/15/19 06/05/23 History capsule (Fish Oil Concentrate) amlodipine 5 mg tablet See Rx Instructions .Route 12/25/22 06/05/23 Rx .COMPLEX #90 tabs losartan 100 mg tablet See Rx Instructions .Route 12/25/22 06/05/23 Rx .COMPLEX #90 tabs Patient hx anesthesia problems: none Family hx anesthesia problems: none Results Review: All pre-operative results and documents have been reviewed as part of the pre-operative evaluation. [facility] Past Medical History Medical History (Updated 12/25/22 @ 10:57 by Ese Urbano NP) Anemia Cyst near tailbone Cyst of jaw Fibroid Heart murmur Hypertension (normal spontaneous vaginal delivery) X3 Seizure disorder last one many years ago Transaminitis Surgical History Surgical History (Updated 12/25/22 @ 10:38 by Tia Oscar CMA) H/O dilation and curettage H/O removal of cyst Pilondial cyst removed 1984 History of laparoscopy Left torsion with removal of left fallopian tube Hx laparoscopic cholecystectomy 2004 Family History Family History Father Hypertension Type 2 diabetes mellitus Hyperlipidemia Mother Hypertension Sibling Type 2 diabetes mellitus Hypertension Hyperlipidemia Father Hypertension Diabetes mellitus Hyperlipidemia Mother Hypertension Sibling Hypertension Diabetes mellitus Hyperlipidemia Father Hypertension Mother Hypertension Sibling Hypertension Social History Social History (Updated 12/25/22 @ 10:43 by Tia Oscar CMA) Smoking status: Never smoker Alcohol intake: never Substance use: never Substance use type: does not use Lack of Transportation: No Lack of Food: Never True Current Housing: I Have Housing Concerned About Future Housing: No Difficulty Paying Gas/Electric Bills: No Difficulty Paying for Meds: No Currently Unemployed: YES Education: Master's Degree or Higher Difficulty w/ Childcare or Family Care: No Living arrangements: with family Spiritual care concerns: No Anes - Eval Final PreProcedure Day of Procedure 06/19/23 12:28 Patient weight: obese Heart: regular rate and rhythm Lungs: clear to auscultation Airway: Mallampati scale class II Neurological: alert and oriented Last oral intake: >/= 8 hours ASA classification: III Emergent: no Anesthetic plan: proceed Anesthesia type and monitoring: general GIVS and standard monitoring Results Review: All pre-operative results and documents have been reviewed as part of the pre-operative evaluation. Informed Consent: The patient's anesthetic plan and its attendant risks and benefits were discussed with the patient/family/POA. Questions were solicited and answers provided to the satisfaction of the patient/family/POA.
[2023-06-19] MEDS: LACTATED RINGERS 1,000 ML 150 ML IV CONT (12:55)
--- NOTE | 2023-06-19 12:58 | PM.HPGS ---
History of Present Illness History of Present Illness Consent: Risks, benefits, and alternatives have been discussed and questions answered. Patient agrees to proceed with procedure. Chief complaint: positive cologuard Narrative: Viviana Frey is a 53 year old female Referred for colon cancer screening. Recent Cologuard test was positive Review of Systems Review of Systems: All systems reviewed & are unremarkable except as noted in HPI and below PMFSH Past Medical History Medical History Anemia Cyst near tailbone Cyst of jaw Fibroid Heart murmur Hypertension (normal spontaneous vaginal delivery) X3 Seizure disorder last one many years ago Transaminitis Surgical History Surgical History H/O dilation and curettage H/O removal of cyst Pilondial cyst removed 1984 History of laparoscopy Left torsion with removal of left fallopian tube Hx laparoscopic cholecystectomy 2004 Family History Family History Father Hypertension Type 2 diabetes mellitus Hyperlipidemia Mother Hypertension Sibling Type 2 diabetes mellitus Hypertension Hyperlipidemia Father Hypertension Diabetes mellitus Hyperlipidemia Mother Hypertension Sibling Hypertension Diabetes mellitus Hyperlipidemia Father Hypertension Mother Hypertension Sibling Hypertension Social History Social History Smoking status: Never smoker Alcohol intake: never Substance use: never Substance use type: does not use Lack of Transportation: No Lack of Food: Never True Current Housing: I Have Housing Concerned About Future Housing: No Difficulty Paying Gas/Electric Bills: No Difficulty Paying for Meds: No Currently Unemployed: YES Education: Master's Degree or Higher Difficulty w/ Childcare or Family Care: No Living arrangements: with family Spiritual care concerns: No Meds Home Medications and Allergies Home Medications Medication Instructions Recorded Confirmed Type coenzyme Q10 10 mg capsule (Co 10 mg PO DAILY 09/15/19 06/05/23 History Q-10) garlic 300 mg capsule (Odorless 300 mg PO DAILY 09/15/19 06/05/23 History Garlic) multivitamin 1 cap PO DAILY 09/15/19 06/05/23 History omega-3 fatty acids 1,000 mg 1,000 mg PO DAILY 09/15/19 06/05/23 History capsule (Fish Oil Concentrate) amlodipine 5 mg tablet See Rx Instructions .Route 12/25/22 06/05/23 Rx .COMPLEX #90 tabs losartan 100 mg tablet See Rx Instructions .Route 12/25/22 06/05/23 Rx .COMPLEX #90 tabs Allergies Allergy/AdvReac Type Severity Reaction Status Date / Time tetanus toxoid, adsorbed Allergy Intermediate Swelling Verified 06/19/23 11:50 Vital Signs Vital Signs - 24 hr 06/19/23 11:59 Temperature 36.6 C Pulse Rate 54 L Respiratory Rate 18 Blood Pressure 151/98 H Pulse Oximetry 100 Oxygen Delivery Room Air Exam Resp: Auscultation: clear to auscultation bilaterally Cardio: Rate: regular rate Rhythm: regular rhythm GI: GI Palp: Yes Soft to palpation and No Tenderness to palpation present (GI) Assessment and Plan Assessment and plan (1) Colon cancer screening: Code(s): Z12.11 - Encounter for screening for malignant neoplasm of colon Status: Acute Assessment and Plan: Colonoscopy with possible biopsy or polypectomy or cautery or injection of substances.
[2023-06-19] MEDS: SIMETHICONE ORAL SUSPENSION 20 MG/0.3 ML 30 ML BOTTLE 0.6 ML IRRIGATION (14:19)
[2023-06-19 14:28] VITALS: BP 114/74; PULSE 68; RESP 12; O2SAT 99
[2023-06-19 14:38] VITALS: BP 121/75; PULSE 66; RESP 17; O2SAT 100
[2023-06-19 14:48] VITALS: BP 144/88; PULSE 57; RESP 19; O2SAT 100
== END 2023-06-19 14:58 | disposition home or self-care (01) ==
PROVIDERS: PCP Internal Medicine; Visit Provider Internal Medicine Gastroenterology
PROC: 0DJD8ZZ Inspection of Lower Intestinal Tract, Via Natural or Artificial Opening Endoscopic (ICD-10-PCS; CPT 45378; principal; 2023-06-19 14:00)
DX: Z12.11 Encounter for screening for malignant neoplasm of colon (principal); R19.5 Other fecal abnormalities; I10 Essential (primary) hypertension; E66.9 Obesity, unspecified; Z68.36 Body mass index [BMI] 36.0-36.9, adult
CPT/HCPCS: 45378; J2704; J7120

== ENCOUNTER 2024-02-21 11:20 | Outpatient (CLI) | payer BC, SELFPAY ==
--- NOTE | ~2024-02-21 | MM_ITS ---
EXAMINATION: MM screening raoul BI w dagoberto HISTORY: Screening mammogram TECHNIQUE: Craniocaudal and mediolateral oblique 3-D tomosynthesis images were obtained and synthetic 2-D images were generated. CAD analysis was submitted and interpreted. COMPARISON: 11/08/2019 and 09/28/2010 BREAST PARENCHYMAL COMPOSITION:Not Dense. There are scattered areas of fibroglandular density. FINDINGS: Stable lymph nodes at the upper, outer left breast. No suspicious mass, calcification, or a rchitectural distortion are identified in either breast to suggest malignancy. There has been no susp icious interval change. IMPRESSION: No mammographic evidence of malignancy. Recommend routine screening mammography in one year. BI-RADS Category 2: Benign finding(s). Reviewed, dictated and finalized at location .
== END 2024-02-21 11:21 ==
LOC: MICIMG 11:21
PROVIDERS: PCP Internal Medicine; Visit Provider Obstetrics & Gynecology Gynecology
DX: Z12.31 Encounter for screening mammogram for malignant neoplasm of breast (principal)
CPT/HCPCS: 77063; 77067